=== PATIENT | male | born 1950 | race Caucasian/White ===

== ENCOUNTER → 2020-06-05 | Emergency (ER) | payer OTHER ==
[~2020-06-05] VITALS: Ht 180.3 cm; Wt 83.9 kg
[~2020-06-05] MED LIST: NAPROXEN375 MG PO; PEPCID AC20 MG PO; SKELAXIN800 MG PO
== END | disposition designated cancer center or children's hospital (05) ==
LOC: ER 02:37
DX: S27.0XXA Traumatic pneumothorax, initial encounter (principal); S22.42XA Multiple fractures of ribs, left side, initial encounter for closed fracture; S00.83XA Contusion of other part of head, initial encounter; S30.1XXA Contusion of abdominal wall, initial encounter; V49.9XXA Car occupant (driver) (passenger) injured in unspecified traffic accident, initial encounter; Y93.89 Activity, other specified; Y92.488 Other paved roadways as the place of occurrence of the external cause; Y99.8 Other external cause status

== ENCOUNTER 2020-06-13 15:13 | Emergency (ER) | payer OTHER ==
[~2020-06-13] VITALS: Ht 172.7 cm; Wt 77.1 kg
[2020-06-13] MEDS ORDERED: SKELAXIN800 MG PO (17:32)
[2020-06-13] MEDS ORDERED: PEPCID AC20 MG PO (17:32)
[2020-06-13] MEDS ORDERED: NAPROXEN375 MG PO (17:32)
== END 2020-06-13 17:45 | disposition home or self-care (01) ==
LOC: ER 15:13
DX: R07.89 Other chest pain (principal)